=== PATIENT | female | born 1950 | race Caucasian/White ===

== ENCOUNTER 2017-11-04 13:30 | Outpatient (RCR) | payer OTHER, SELFPAY ==
--- NOTE | 2017-10-16 12:12 | HP.PTEVAL_ITS ---
Patient's Visit Information WALT BARRERA is a 66 year old F referred to Physical Therapy by Out of Town Doctor with a diagnosis of BACK PAIN. Date of Evaluation: 10/16/17 Physical Therapist: Padmini Farrar - Visit Plan Frequency: 2-3x /Week Duration: 4-6 Weeks Plan: *NO LIFTING FOR 6 MONTHS* *NO BENDING OR TWISTING*. AQUATIC THERAPY FOR POSTURE CORRECTION/STRENGTHENING, INSTRUCTION IN APPROPRIATE BODY MECHANICS AND ACTIVITY MODIFICATIONS. DLS WITH A NEUTRAL SPINE. ASHLEY LE ROM, STRETCHING AND STRENGTHENING. HEP INSTRUCTION. - Subjective Subjective: Diagnosis: BACK PAIN. Work/Leisure: HOMEMAKER. Disability: NO. Present symptoms: LOW BACK PAIN NEAR SURGICAL AREA. NO LE SX'S. Present since: LOW BACK PROBLEMS STARTED ABOUT A YEAR AGO. Pain Scale: WORST 3/10, LEAST 1/10. Currently: 10. Commenced as a result of: NO APPARENT REASON - TAKING CARE OF . EXTRA LIFTING AROUND THE HOUSE. Symptoms at onset: LOW BACK. Worse: SITTING TOO LONG, LYING DOWN TOO LONG, LIFTING, GROCERY SHOPPING, UP AND DOWN STEPS. Better: LYING DOWN, SITTING. Disturbed sleep: YES. Previous history/Previous treatment: LONG HISTORY OF TONI'S AND TRIED PT BEFORE SURGERY. June HAD BACK SURGERY - LAMINECTOMY BY DR. NUNEZ. HAD BLOOD CLOT SO HAD TO GO BACK IN. Coughing/sneezing/straining: NEGATIVE. Gait : OK SHORT DISTANCES. MUCH BETTER THAN BEFORE SURGERY. Difficulty initiating urinatin: NO. Unexplained weight loss: NO. Imaging: MRI BEFORE SURGERY SHOWING DETERIORATION AND STENOSIS. ACCIDENTS: NO. PMH: PMH: CERVICAL ACDF 2011. GALLBLADDER REMOVAL. INCONTINENCE. LICHEN SCLEROSIS. DEPRESSION. HIGH CHOLESTEROL. - Objective Sitting/Standing Posture: FAIR. Lordosis: REDUCED. Lateral shift: NO. Relevant shift: N/A. Active Correction of posture: BETTER. Other Observations : INDEP GAIT INTO PT WITHOUT ASSISTIVE DEVICE. DECREASED CADANCE. INDEP TRANSFER SIT TO STAND WITHOUT UE ASSIST. Motor deficit: ASHLEY LE'S 5/5 WITH MMT' ING EXCEPT HIPS GRADED 4/5. Sensory deficit: NO. ROM deficit: ASHLEY LE'S WFL. Lumbar mvmt loss: NT. Core strength: POOR. Palpation: INCISION LOOKS GREAT. - Goals Goal 1:: DECREASE C/O BACK PAIN Goal Time Frame: 4-6 Weeks Goal 2:: IMPROVE SITTING, STANDING, WALKING, HOMEMAKING, GROCERY SHOPPING AND RECREATIONAL FUNCTION. Goal Time Frame: 4-6 Weeks Goal 3:: INSTRUCT IN PROPHYLAXIS Goal Time Frame: 4-6 Weeks - Rehabilitation Potential Rehabilitation Potential: Fair - Anticipated Interventions Patient/Client Instruction: Educate patient on: Condition, Plan of Care, Risk Factors, Benefits of Fitness Program For the Purpose of:: To improve self management Therapeutic Exercise to Include: Strength training, Body mechanics, Postural training, Flexibilty training, In an aquatic setting, Active ROM, Dynamic Lumbar Stabilization For the Purpose of:: To decrease pain, To improve muscle performance and motor function, To increase tolerance to activity/condition/position, To improve ability of physical actions for home/community/work/leisure Thank you for the opportunity to evaluate your patient. For Medicare and Medicare HMO plans, please review the plan of care and approve it. It will need to be FAXED BACK to us at [phone] for Medicare purposes. Please let me know if there are questions or concerns regarding this plan of care. Physician Signature: Date:
--- NOTE | 2018-01-22 12:41 | HP.PTDCNRP_ITS ---
HP - Discharge Summary (1) - Patient Information WALT BARRERA was seen in my office for initial evaluation on 10/16/17. The following Plan of Care was established for this patient: Initial Frequency: 2-3x /Week Initial Duration: 4-6 Weeks - Anticipated Interventions Patient/Client Instruction: Educate patient on: Condition, Plan of Care, Risk Factors, Benefits of Fitness Program For the Purpose of:: To improve self management Therapeutic Exercise to Include: Strength training, Body mechanics, Postural training, Flexibilty training, In an aquatic setting, Active ROM, Dynamic Lumbar Stabilization For the Purpose of:: To decrease pain, To improve muscle performance and motor function, To increase tolerance to activity/condition/position, To improve abili ty of physical actions for home/community/work/leisure This patient was last seen in our office . Pertinent comments regarding their Physical therapy will appear below: This patient has not returned to Physical Therapy and is appropriate to return to MD for further follow-up as needed. At this point I will be discontinuing this patient from physical therapy. I would be happy to see this patient again in the future if found appropriate by the physician. Thank you! Padmini Farrar
== END 2017-11-04 19:00 | disposition home or self-care (01) ==
LOC: PT 13:30
DX: M54.9 Dorsalgia, unspecified (principal)
CPT/HCPCS: 97113; 97161